=== PATIENT | female | born 1965 | race Caucasian/White ===

== ENCOUNTER 2018-10-03 11:17 | Emergency (ER) | payer BC, OTHER ==
[2018-10-03 11:58] VITALS: BP 122/67
[2018-10-03] MEDS ORDERED: Albuterol/Ipratropium NEB.SOL* Albuterol 2.5 MG/Ipratropium 0.5 MG 3 ML INH ONE (12:10)
--- NOTE | 2018-10-03 12:39 | UC ---
Throat Pain/Nasal Jeff HPI - HPI Summary HPI Summary: 53 -year-old female who has had cold symptoms for the past 2 days. She states that she feels like her lungs are full. She is a smoker. - History of Current Complaint Chief Complaint: UCGeneralIllness Stated Complaint: CONGESTION,VOMITING Time Seen by Provider: 10/03/18 12:06 Hx Obtained From: Patient ?: No Onset/Duration: Gradual Onset Severity: Mild Pain Intensity: 3 Cough: Nonproductive Associated Signs & Symptoms: Positive: Wheezing - Wheezing mostly related when she lays down. She states she feels like her lungs are full., Nasal Discharge - Epiglottits Risk Factors Epiglottis Risk Factors: Negative - Allergies/Home Medications Allergies/Adverse Reactions: Allergies Allergy/AdvReac Type Severity Reaction Status Date / Time diphenhydramine Allergy Numbness Verified 10/03/18 11:58 [From Benadryl] PMH/Surg Hx/FS Hx/Imm Hx Previously Healthy: Yes - Surgical History Surgical History: Yes Surgery Procedure, Year, and Place: CARDIAC STENT PLACEMENT @[facility] 2008(XIENCE V- 720G/CM UP TO 3T-NORMAL OPERATING MODE FOR 15 MINUTES OF SCANNING -CARD SCANNED INTO OTHER FACILITIES REPORTS IN EMR); C SECTION; HERNIA A CHILD - Family History Known Family History: Positive: None - Social History Alcohol Use: Weekly Alcohol Amount: wine a couple of times a week Substance Use Type: None Smoking Status (MU): Current Every Day Smoker Type: Cigarettes Amount Used/How Often: LESS THAN 1/2 PPD Length of Time of Smoking/Using Tobacco: 27 YRS Review of Systems All Other Systems Reviewed And Are Negative: Yes ENT: Positive: Nasal Discharge - Or nasal coryza Respiratory: Positive: Cough - Tight nonproductive cough. Is Patient Immunocompromised?: No Physical Exam Triage Information Reviewed: Yes Appearance: Well-Appearing, No Pain Distress, Well-Nourished Vital Signs: Initial Vital Signs Temp 98.2 F 10/03/18 11:50 Pulse 53 10/03/18 11:50 Resp 18 10/03/18 11:50 BP 122/67 10/03/18 11:50 Pulse Ox 98 10/03/18 11:50 Vital Signs Reviewed: Yes Eye Exam: Normal ENT: Positive: Pharynx normal, Nasal congestion, Nasal drainage - Nasal coryza, Uvula midline Neck: Positive: Supple, Nontender, No Lymphadenopathy Respiratory: Positive: No respiratory distress, No accessory muscle use, Wheezing - Tight cough with mild wheezing with forced expiration. Cardiovascular: Positive: RRR, No Murmur, Pulses Normal, Brisk Capillary Refill Throat Pain/Nasal Course/Dx - Course Course Of Treatment: CXR: FINDINGS: CARDIOMEDIASTINAL SILHOUETTE: The cardiomediastinal silhouette is normal. YUMI: The yumi are normal. PLEURA: The costophrenic angles are sharp. No pleural abnormalities are noted. LUNG PARENCHYMA: There is hyperinflation with flattening of the diaphragm and expansion of the AP diameter of the chest. ABDOMEN: The upper abdomen is clear. There is no subphrenic gas. BONES AND SOFT TISSUES: No bone or soft tissue abnormalities are noted. OTHER: None. IMPRESSION: HYPERINFLATION, CONSISTENT WITH COPD. NO ACTIVE CARDIOPULMONARY DISEASE. Patient was given a DuoNeb treatment with complete clearing of her lung rodarte, therefore treat her as a bronchitis with prednisone taper. She is to follow-up with her primary care provider. I believe this is viral at the time however I did inform her the x-ray shows COPD. - Differential Dx/Diagnosis Provider Diagnosis: Bronchitis Discharge - Sign-Out/Discharge Documenting (check all that apply): Patient Departure All imaging exams completed and their final reports reviewed: Yes - Discharge Plan Condition: Fair Disposition: HOME Prescriptions: predniSONE [Prednisone 20 MG TAB] 20 mg PO DAILY 9 Days #18 tablet Patient Education Materials: Acute Bronchitis (ED), COPD (Chronic Obstructive Pulmonary Disease) (DC) Referrals: [facility] [Outside] No Primary Care Phys,NOPCP [Primary Care Provider] - Additional Instructions: Increase fluids, stop smoking, take prednisone with food. Definite follow up at the [facility] on Monday if no improvement if any worsening coming into the week and then go to the emergency room. - Billing Disposition and Condition Condition: FAIR Disposition: Home
== END 2018-10-03 12:51 | disposition home or self-care (01) ==
LOC: UCCORT 11:17
DX: J40 Bronchitis, not specified as acute or chronic (principal); R09.89 Other specified symptoms and signs involving the circulatory and respiratory systems; R91.8 Other nonspecific abnormal finding of lung field; R11.10 Vomiting, unspecified; F17.210 Nicotine dependence, cigarettes, uncomplicated; Z88.8 Allergy status to other drugs, medicaments and biological substances
CPT/HCPCS: 71046; 99212; A9270-GY; G0463

== ENCOUNTER 2019-04-09 09:53 | Emergency (ER) | payer BC ==
--- NOTE | 2019-04-09 10:10 | UC ---
Ear Complaint HPI - HPI Summary HPI Summary: 54 yo female presents with sinus pain/pressure/congestion, right ear pain, sore throat, and intermittently productive cough for the last 5 days. She has been taking OTC sudafed, which does help, but only for a short while. She has felt feverish, but has not taken her temperature. Denies SOB, chest pain, abdominal pain, n/v. - History of Current Complaint Stated Complaint: RT EAR/NECK PAIN Time Seen by Provider: 04/09/19 10:06 Hx Obtained From: Patient Onset/Duration: Gradual Onset Severity Initially: Moderate Severity Currently: Moderate Pain Intensity: 5 Pain Scale Used: 0-10 Numeric - Allergies/Home Medications Allergies/Adverse Reactions: Allergies Allergy/AdvReac Type Severity Reaction Status Date / Time diphenhydramine Allergy Numbness Verified 04/09/19 10:13 [From Benadryl] Home Medications: Home Medications Pseudoephedrine HCl [Sudafed 12 Hour] 1 tab PO ONCE 04/09/19 [History Confirmed 04/09/19] PMH/Surg Hx/FS Hx/Imm Hx Endocrine History: Dyslipidemia Cardiovascular History: Cardiac Disease, Hypertension - Surgical History Surgical History: Yes Surgery Procedure, Year, and Place: [facility] ST[facility]ACEMENT @[facility] 2008(XIENCE V- 720G/CM UP TO 3T-NORMAL OPERATING MODE FOR 15 MINUTES OF SCANNING -CARD SCANNED INTO OTHER FACILITIES REPORTS IN EMR); C SECTION; HERNIA A CHILD - Family History Known Family History: Positive: None - Social History Alcohol Use: Weekly Alcohol Amount: wine a couple of times a week Substance Use Type: None Smoking Status (MU): Current Every Day Smoker Type: Cigarettes Amount Used/How Often: LESS THAN 1/2 PPD Length of Time of Smoking/Using Tobacco: 27 YRS Review of Systems All Other Systems Reviewed And Are Negative: No Constitutional: Positive: Negative Skin: Positive: Negative Eyes: Positive: Negative ENT: Positive: Sore Throat, Ear Ache, Nasal Discharge, Sinus Congestion, Sinus Pain/Tenderness Respiratory: Positive: Cough Cardiovascular: Positive: Negative Gastrointestinal: Positive: Negative Neurological: Positive: Negative Psychological: Positive: Negative Physical Exam - Summary Physical Exam Summary: GENERAL: NAD. WDWN. No pain distress. SKIN: No rashes, sores, lesions, or open wounds. HEENT: Head: AT/NC Eyes: EOM intact. Conjunctiva clear without inflammation or discharge. Ears: Hearing grossly normal. TMs intact, no bulging, erythema, or edema. Nose: Nasal mucosa mildly swollen and erythematous with yellow/ clear discharge. TTP maxillary and frontal sinus on the right. Positive post nasal drip Throat: Posterior oropharynx without exudates, erythema, or tonsillar enlargement. Uvula midline. NECK: Supple. Nontender. No lymphadenopathy. CHEST: CTAB. No r/r/w. No accessory muscle use. Breathing comfortably and in no distress. CV: RRR. Pulses intact. NEURO: Alert. PSYCH: Age appropriate behavior. Triage Information Reviewed: Yes Vital Signs: Vital Signs: Temp Pulse Resp BP Pulse Ox 98.4 F 59 18 129/71 99 04/09/19 10:08 04/09/19 10:08 04/09/19 10:08 04/09/19 10:08 04/09/19 10:08 Vital Signs Reviewed: Yes Ear Complaint Course/Dx - Course Course Of Treatment: Sinusitis - Differential Dx/Diagnosis Provider Diagnosis: Sinusitis Discharge ED - Sign-Out/Discharge Documenting (check all that apply): Patient Departure All imaging exams completed and their final reports reviewed: No Studies - Discharge Plan Condition: Stable Disposition: HOME Prescriptions: Amoxicillin PO (*) [Amoxicillin 875 MG (*)] 875 mg PO BID #14 tab Patient Education Materials: Sinusitis (ED) Referrals: No Primary Care Phys,NOPCP [Primary Care Provider] - Additional Instructions: If you develop a fever, shortness of breath, chest pain, new or worsening symptoms - please call your PCP or go to the ED immediately. Continue taking sudafed over the counter as directed - Billing Disposition and Condition Condition: STABLE Disposition: Home
[2019-04-09 10:13] VITALS: BP 129/71
== END 2019-04-09 10:28 | disposition home or self-care (01) ==
LOC: UCCORT 09:53
DX: J32.9 Chronic sinusitis, unspecified (principal); R05 Cough; H92.01 Otalgia, right ear; F17.210 Nicotine dependence, cigarettes, uncomplicated; I10 Essential (primary) hypertension; Z95.5 Presence of coronary angioplasty implant and graft; Z88.8 Allergy status to other drugs, medicaments and biological substances
CPT/HCPCS: 99212; G0463